=== PATIENT | male | born 1975 | race Caucasian/White ===

== ENCOUNTER 2018-02-14 10:54 | Emergency (ER) | payer BC ==
[~2018-02-14] VITALS: Ht 157.5 cm; Wt 74.8 kg
[~2018-02-14 10:54] MED LIST: ATORVASTATIN CA20 MG PO; HUMALOG MI100 UNIT/4 SQ; LANTUS 3ML100 UNITS/ SQ; LISINOPRIL5 MG PO; METFORMIN HCL500 MG PO; OMEPRAZOLE40 MG PEG
[2018-02-14 12:51] VITALS: BP 139/94
== END 2018-02-14 12:50 | disposition home or self-care (01) ==
LOC: FSED 10:54
DX: R00.2 Palpitations (principal); I10 Essential (primary) hypertension
CPT/HCPCS: 99282